=== PATIENT | female | born 1950 | race Caucasian/White ===

== ENCOUNTER 2020-02-10 11:08 | Inpatient (IN) ==
[2020-02-05 11:38] LABS: Appearance,Urine CLEAR; Bilirubin,Urine NEG (NEG); Color,Urine STRAW; Culture Indicated,Urine NO; Glucose,Urine (UA) NEGATIVE (NEG); Ketones,Urine NEG (NEG); Leukocyte Esterase,Urine NEG /uL (NEG); Nitrate,Urine NEG (NEG); Protein,Urine NEG (NEG); Specific Gravity,Urine 1.009 (1.000-1.035); Urine Blood NEG mg/dL (<0.03); Urobilinogen,Urine NEG (NEG)
[2020-02-05 12:48] LABS: Basophils # (Auto) 0.04 K/mcL (0.00-0.30); Basophils % (Auto) 0.8 % (0.0-2.0); Eosinophils # (Auto) 0.11 K/mcL (0.00-0.70); Eosinophils % (Auto) 2.1 % (0.0-7.0); Granulocytes % (Auto) 67.1 % (38.0-78.0); Hematocrit 33.2 % (34.1-44.9); Hemoglobin 10.1 g/dL (11.2-15.7); Lymphocytes # (Auto) 1.27 K/mcL (1.50-4.80); Lymphocytes % (Auto) 24.6 % (15.5-49.0); Mean Corpuscular HGB Conc 30.4 g/dL (31.0-36.0); Mean Platelet Volume 11.9 fL (7.4-10.4); Monocytes # (Auto) 0.28 K/mcL (0.10-0.90); Monocytes % (Auto) 5.4 % (1.0-12.0); Platelet Count 153 K/mcL (140-440); Red Cell Distribution Width 15.9 % (11.5-14.5); WBC 5.2 K/mcL (4.50-11.00)
[2020-02-05 13:06] LABS: Blood Urea Nitrogen 9 mg/dl (8-23); Calcium 9.4 mg/dl (8.6-10.4); Carbon Dioxide 27 mmol/L (22-30); Chloride 99 mmol/L (96-108); Glomerular Filtration Rate 76; Glucose 132 mg/dL (70-105)
[2020-02-05 13:09] LABS: Estimated Average Glucose(eAG) 192 mg/dL; Hemoglobin A1C 8.3 % HGB (4.0-6.0)
[2020-02-05 13:13] LABS: INR 1.1 (0.9-1.1); Prothrombin Time 14.6 sec (11.9-14.5)
[~2020-02-10 11:08] MED LIST: 0.9 % SODIUM CHLORIDE 9 ML, KETOROLAC 30 MG, ROPIVACAINE HCL/PF 49.5 ML, EPINEPHrine 0.... IJ SCH; ACETAMINOPHEN 500 MG TABLET PO SCH; CELECOXIB 200 MG CAPSULE PO SCH; IPRATROPIUM/ALBUTEROL 3 ML AMPUL.NEB NEB PRN; PREGABALIN 75 MG CAPSULE PO SCH; SCOPOLAMINE 1 PATCH PATCH TOPICAL PRN; ceFAZolin 2 GM in DEXTROSE 5% IN WATER 50 ML IV SCH; oxyCODONE 10 MG TAB.ER.12H PO SCH
[2020-02-10 12:54] LABS: POC Blood Urea Nitrogen 6 mg/dl (8-23); POC CO2 28 mmol/L (22-30); POC Calcium, Ionized 1.15 mmol/L (1.16-1.32); POC Chloride 101 mmol/L (96-108); POC Creatinine 0.7 mg/dl (0.6-1.1); POC Glucose, Random 152 mg/dL (70-105); POC Potassium 4.2 mmol/L (3.3-5.1); POC Sodium 137 mmol/L (133-145)
[2020-02-10] MEDS ORDERED: ROPIVACAINE HCL/PF 20 ML VIAL IJ ONE (15:25)
[2020-02-10] MEDS ORDERED: PROPOFOL 200 MG/20 ML VIAL IV ONE (15:25)
[2020-02-10] MEDS ORDERED: DEXAMETHASONE 10 MG/ML VIAL IV ONE (15:25)
[2020-02-10] MEDS ORDERED: LIDOCAINE HCL/PF 100 MG/5 ML SYRINGE IV ONE (15:25)
[2020-02-10] MEDS ORDERED: ONDANSETRON 4 MG/2 ML VIAL IV ONE (15:25)
[2020-02-10] MEDS ORDERED: KETAMINE 100 MG/ML ML IV ONE (15:25)
[2020-02-10] MEDS ORDERED: GENTAMICIN SULFATE 800 MG/20 ML VIAL IR ONE (15:58)
[2020-02-10] MEDS ORDERED: MEPERIDINE 25 MG/ML SYRINGE IV PRN (16:27)
[2020-02-10] MEDS ORDERED: IPRATROPIUM/ALBUTEROL 3 ML AMPUL.NEB NEB PRN (16:27)
[2020-02-10] MEDS ORDERED: NALOXONE HCL 0.4 MG/ML VIAL IV PRN (16:27)
[2020-02-10] MEDS ORDERED: PROMETHAZINE 25 MG/ML VIAL IV PRN (16:27)
[2020-02-10] MEDS ORDERED: ONDANSETRON 4 MG/2 ML VIAL IV PRN ×2 (16:27→18:01)
[2020-02-10] MEDS ORDERED: diphenhydrAMINE 50 MG/ML VIAL IV PRN (16:27)
[2020-02-10] MEDS ORDERED: fentaNYL 100 MCG/2 ML VIAL IV PRN (16:27)
[2020-02-10] MEDS ORDERED: LACTATED RINGERS 250 ML IV PRN (16:27)
[2020-02-10] MEDS ORDERED: LACTATED RINGERS 1,000 ML IV SCH (16:30)
--- NOTE | 2020-02-10 16:51 | Brief Operative Note ---
Date of procedure: 02/10/20 Pre-op diagnosis: Right knee djd Post-op diagnosis: same Procedure: Right total knee Grafts/Implants: Yes Anesthesia: LISA Surgeon: Bart Jacob Process Safety Specialist: Sanjeev Ramirez Estimated blood loss (cc): 20 Tourniquet Time (Minutes): 45 Specimens Removed/Pathology: none sent Condition: stable Disposition: PACU
[2020-02-10] MEDS ORDERED: HYDROCODONE/APAP 7.5/325MG TABLET PO PRN (16:53)
[2020-02-10] MEDS ORDERED: ONDANSETRON 4 MG ODT TABLET SL PRN ×2 (16:53→18:01)
--- NOTE | 2020-02-10 17:05 | Discharge Summary ---
Ortho Discharge - TKA - Patient Instructions Diet: Regular Diet Activity: activity as tolerated, weight bearing as tolerated Total Knee Protocol: For Total Knee: Start ROM DAVID with stationary bike or rocking chair. Work on gaining full extension of knee. Posterior dislocation precautions provided. Hip abductor strengthening and gait training instructions provided. Apply Cryocuff as instructed. Dressing Care: May shower in 2 days - Follow Up Plan Follow Up Appointments: Sanjeev Ramirez PA-C [Physician Entomology Professor] - 02/27/20 8:50 am Disposition: Home, Self-Care Prognosis: Good Rehab Potential: Good I certify that the patient requires SNF services: No Overall status at discharge: patient is progressing back to baseline - Orders For Discharge Prescriptions: Docusate Sodium [Colace] 100 mg PO BID #60 cap Transmission Status: Pending to [facility] Hydrocodone/APAP 7.5/325Mg [[place] 7.5-325Mg] 1 - 2 tab PO Q4 #75 tab Prescription Printed
[2020-02-10] MEDS: metFORMIN 500 MG TAB.XL.24H PO SCH (17:56)
[2020-02-10] MEDS ORDERED: FLEETS ADULT ENEMA PR PRN (18:01)
[2020-02-10] MEDS ORDERED: BISACODYL 10 MG SUPP.RECT PR PRN (18:01)
[2020-02-10] MEDS ORDERED: ACETAMINOPHEN 325 MG TABLET PO PRN (18:01)
[2020-02-10] MEDS ORDERED: HYDROmorphone 2 MG/ML VIAL IV PRN (18:01)
[2020-02-10] MEDS ORDERED: MAGNESIUM HYDROXIDE 30 ML ORAL.SUSP PO PRN (18:01)
[2020-02-10] MEDS ORDERED: TRANEXAMIC ACID 1,000 MG/10 ML VIAL IV ONE (18:01)
[2020-02-10] MEDS ORDERED: POLYETHYLENE GLYCOL 3350 17 GM PACKET PO PRN (18:01)
[2020-02-10] MEDS ORDERED: BENZOCAINE/MENTHOL 1 LOZENGE PO PRN (18:01)
[2020-02-10] MEDS ORDERED: TEMAZEPAM 15 MG CAPSULE PO PRN (18:01)
[2020-02-10] MEDS ORDERED: KETOROLAC 15 MG/ML VIAL ONE (18:11)
[2020-02-10] MEDS: LACTATED RINGERS 1,000 ML IV SCH (18:18)
--- NOTE | 2020-02-10 18:22 | XRay Report ---
CLINICAL INFORMATION: Post-Op Total Knee COMPARISON: None. FINDINGS: Total knee prostheses is anatomically aligned. No osseous abnormalities. Soft tissue swelling seen as expected. IMPRESSION: Negative Interpreted and Authenticated by: Puma Rush 02/10/20
[2020-02-10] MEDS ORDERED: SENNOSIDES 1 TABLET PO SCH (21:00)
[2020-02-10] MEDS ORDERED: PRAMIPEXOLE 1 MG TABLET PO SCH (21:00)
[2020-02-10] MEDS ORDERED: ZOLPIDEM 5 MG TABLET PO SCH (21:00)
[2020-02-10] MEDS: ASPIRIN 325 MG ENTERIC COATED TABLET PO SCH (22:00)
[2020-02-10] MEDS: 0.9 % SODIUM CHLORIDE 10 ML SYRINGE IV SCH (22:01)
[2020-02-10] MEDS: HYDROcodone/APAP 10/325MG TABLET PO PRN (22:02)
[2020-02-10] MEDS: DOCUSATE SODIUM 100 MG CAPSULE PO SCH (22:03)
[2020-02-10] MEDS: APIXABAN 2.5 MG TABLET PO SCH (22:04)
[2020-02-10] MEDS: PREGABALIN 100 MG CAPSULE PO SCH (22:04)
[2020-02-10] MEDS: DIAZEPAM 5 MG TABLET PO SCH (22:04)
[2020-02-11] MEDS: KETOROLAC 15 MG/ML VIAL IV SCH ×3 (00:29→12:34)
[2020-02-11] MEDS: LACTATED RINGERS 1,000 ML IV SCH (05:36)
--- NOTE | 2020-02-11 07:15 | Operative Note ---
DATE OF OPERATION: 02/10/2020 PREOPERATIVE DIAGNOSIS: Right knee degenerative arthritis, severe. POSTOPERATIVE DIAGNOSIS: Right knee degenerative arthritis, severe. PROCEDURE: Right total knee arthroplasty. SURGEON: Bart Jacob MD SPINNING AND WINDING SUPERVISOR: Sanjeev Ramirez PA-C. This provider's expertise and technical skill were required throughout the case. The PA assisted with preoperative coordination, intraoperative retraction, wound closure, dressing and splint application, as well as postoperative documentation and care coordination. ANESTHESIA: General LMA anesthesia. COMPLICATIONS: None. DESCRIPTION OF PROCEDURE: The patient was brought to the operating room, placed supine on the operating table, and put to sleep with general LMA anesthesia. Once asleep, the patient had the right knee sterilely prepped and draped in the usual sterile fashion. Once done, we had a timeout and confirmed the operative site by initials, consent form and x-rays. We then proceeded with the case. The patient received tranexamic acid and antibiotics. A midline incision was made on the knee and a midvastus approach performed. Through this we were able to inspect the joint which showed significant severe arthritis throughout the knee. We then placed an intramedullary guide hole into the femur, made our distal femoral cut at 9 mm. Once done, we then made our chamfer cuts. Our box cut was made for the femur for posterior stabilized design. We then made our tibial cut at 8 mm below the medial compartment. We were able to then tap into place a size 3 tibial baseplate and size 3 femur. The patella measured 21 mm. This was cut to 13 mm and we placed a 32 mm patellar button. Once this was trialled, we placed a 7 mm poly liner and this seemed to fit very nicely and gave us full range of motion. We irrigated thoroughly and then cemented into place size 3 femur and size 3 tibial baseplate with a 7 mm poly, 32 mm patellar button. This was highly cross-linked E-poly for wear resistance. We irrigated thoroughly and then closed the mid vastus approach with #1 Stratafix and adhesive closure. The tourniquet was deflated at approximately 45 minutes. There were no complications. Blood loss was about 20 mL. [id number]:nitesh Job ID: [id number] Doc ID: [id number] Bart Jacob MD
[2020-02-11] MEDS: 0.9 % SODIUM CHLORIDE 10 ML SYRINGE IV SCH (07:17)
[2020-02-11] MEDS ORDERED: LEVOTHYROXINE 100 MCG TABLET PO SCH (07:30)
[2020-02-11] MEDS ORDERED: GLIMEPIRIDE 2 MG TABLET PO SCH (07:30)
--- NOTE | 2020-02-11 07:42 | Orthopedic Progress Note ---
Subjective Patient information: Note initiated : 02/11/20 at 7:41 am Service Date, if different from initiated Date: [] Patient: Salma Montilla 69 y/o F admitted on 02/10/20 for Right Total Knee Arthroplasty. Chief Complaint: [Pt is stable this morning on post operative day 1 without any significant concerns or complaints. Patients vital signs have remained stable. Patients dressing is dry and is grossly intact from a neurovascular and motor standpoint. Patients 10 point ROS is otherwise negative. ] Objective Vital signs: Vital Signs Temp Pulse Resp BP Pulse Ox 02/11/20 07:16 95 02/11/20 07:14 97.6 F 84 16 126/70 95 02/11/20 05:32 86 02/11/20 04:24 98.2 F 86 12 129/69 96 02/10/20 23:27 97.9 F 92 H 12 141/74 94 02/10/20 20:40 97.6 F 84 12 149/72 95 02/10/20 20:00 12 94 02/10/20 19:40 85 159/69 98 02/10/20 19:10 86 150/67 97 02/10/20 18:40 78 158/69 96 02/10/20 18:25 76 161/69 98 02/10/20 18:10 78 98 02/10/20 17:56 83 133/68 99 02/10/20 17:40 86 143/65 97 02/10/20 17:29 97.5 F 87 15 137/57 100 02/10/20 17:20 91 H 16 132/80 99 02/10/20 17:15 70 14 114/60 100 02/10/20 17:10 69 14 117/50 100 02/10/20 17:05 73 10 L 114/46 100 02/10/20 17:02 97.3 F 77 10 L 112/48 100 02/10/20 11:08 98.5 F 78 22 152/76 96 Intake and Output 02/10/20 02/11/20 02/11/20 21:59 05:59 13:59 Intake Total 1700 120 Output Total 50 800 Balance 1650 -680 Intake: Oral 120 IV - Manual Only 1700 Output: Void Amount 800 Estimated Blood Loss 50 Other: Meal Nourishment/Supplement Percent of Meal Consumed 50% Feeding Ability Independent Urine Appearance Clear Clear Urine Color Bright Yellow Pale Urine Odor Normal Normal # Voids 1 Intake & Output: Intake & Output 02/10/20 02/11/20 02/11/20 21:59 05:59 13:59 Intake Total 1700 120 Output Total 50 800 Balance 1650 -680 Intake: Oral 120 IV - Manual Only 1700 Output: Void Amount 800 Estimated Blood Loss 50 Other: Meal Nourishment/Supplement Percent of Meal Consumed 50% Feeding Ability Independent Urine Appearance Clear Clear Urine Color Bright Yellow Pale Urine Odor Normal Normal # Voids 1 Incision: Yes healing Incision clean and dry: Yes Dressing: Yes clean Weight bearing status: full Neurological exam IM: Yes motor sensory intact, Yes neurovascular intact Extremities exam IM: Yes Foot pink and warm, Yes neurovascular intact - Labs CBC & BMP: 02/11/20 06:00 02/05/20 10:12 Labs: Orthopedic Labs 02/05/20 10:12 PT 14.6 H INR 1.1 02/11/20 02/05/20 06:00 10:12 Hgb 10.1 L Hct 28.5 L 33.2 L Assessment and Plan (1) Hx of total knee arthroplasty The patient has been educated regarding dressing care, Physical Therapy recommendations, home exercises, restrictions, and follow up appointments. The patient has had all necessary DME prescribed. The patient has remained relatively stable during their hospital course. Leave Dermabond patch intact until followup Status: Acute
[2020-02-11] MEDS: metFORMIN 500 MG TAB.XL.24H PO SCH (07:58)
[2020-02-11] MEDS ORDERED: OMEPRAZOLE 20 MG CAPSULE PO SCH (08:00)
[2020-02-11] MEDS ORDERED: LISINOPRIL 20 MG TABLET PO SCH (09:00)
[2020-02-11] MEDS ORDERED: PRAMIPEXOLE 0.25 MG TABLET PO SCH (09:00)
[2020-02-11] MEDS ORDERED: ATORVASTATIN 20 MG TABLET PO SCH (09:00)
[2020-02-11] MEDS ORDERED: sitaGLIPtin 50 MG TABLET PO SCH (09:00)
[2020-02-11] MEDS: DIAZEPAM 5 MG TABLET PO SCH (09:24)
[2020-02-11] MEDS: ASPIRIN 325 MG ENTERIC COATED TABLET PO SCH ×2 (09:24→13:57)
[2020-02-11] MEDS: DOCUSATE SODIUM 100 MG CAPSULE PO SCH ×2 (09:25→09:50)
[2020-02-11] MEDS: APIXABAN 2.5 MG TABLET PO SCH (09:25)
[2020-02-11] MEDS: PREGABALIN 100 MG CAPSULE PO SCH (09:26)
[2020-02-11] MEDS: HYDROcodone/APAP 10/325MG TABLET PO PRN (09:28)
[2020-02-11] MEDS ORDERED: NICOTINE 21 MG PATCH TOPICAL SCH (10:00)
[2020-02-11] MEDS ORDERED: FLU VACC QS2019-20(6MOS UP)/PF 60 MCG/0.5 ML SYRINGE IM ONE (10:00)
== END 2020-02-11 14:00 | disposition home or self-care (01) | DRG 470 ==
LOC: MEDSUR 11:08
PROVIDERS: ADMIT Orthopaedic Surgery; ATTEND Orthopaedic Surgery